=== PATIENT | female | born 1955 | race African-American/Black ===

== ENCOUNTER 2022-01-23 19:10 | Emergency (ER) | payer OTHER, SELFPAY ==
[2022-01-23] VITALS (8 sets, daily range): BP systolic 117–188; BP diastolic 51–122; PULSE 77–89; RESP 18; TEMP 36.6; O2SAT 94–99; BMI 31.4
--- NOTE | ~2022-01-23 | CT_ITS ---
EXAMINATION: CHEST. CT BRAIN WITHOUT CONTRAST. CLINICAL INFORMATION: Weakness. COMPARISON: None TECHNIQUE: 5 mm thin axial and reformatted 2 mm thin sagittal and coronal images of brain were obtained without contrast. DLP 711. Chest one view. FINDINGS: BRAIN: There is no acute intra-axial, extra-axial bleed, masses or midline shift shift. Both lateral ventricles are symmetrical in size and configuration without enlargement. There is no acute infarction evolution. There is no edema. There is dystrophic bibasilar calcification. Bone windows reveal no calvarial abnormality. There is no scalp abnormality seen. Bilateral paranasal sinuses and mastoid air cells are well-aerated. CHEST: The lungs are well-expanded and clear. The heart size and pulmonary vascularity is normal. No gross bony abnormality seen. CT/CT head/brain wo IV con IMPRESSION: Unremarkable chest exam. No acute intracranial process seen.
--- NOTE | 2022-01-23 19:20 | ECG_ITS ---
Test Reason : SYNCOPE Blood Pressure : / mmHG Vent. Rate : 077 BPM Atrial Rate : 077 BPM P-R Int : 210 ms QRS Dur : 084 ms QT Int : 330 ms P-R-T Axes : 042 -14 080 degrees QTc Int : 373 ms Sinus rhythm with 1st degree A-V block Minimal voltage criteria for LVH, may be normal variant ( R in aVL ) Nonspecific T wave abnormality Abnormal ECG No previous ECGs available Referred By: Fern Quinonez Electronically Signed By:KARMA BAH MD
[2022-01-23 20:26] LABS: MANUAL DIFF FLAG NO
[2022-01-23 20:31] LABS: Basophils Percent Auto 0.7 % (0-2); Eosinophils Percent Auto 0.7 % (0-4); Hemoglobin 13.2 g/dl (12.0-16.0); Imm Gran Abs Auto 0.01 X10*3/uL (0.00-0.03); Imm Gran Pct Auto 0.2 % (0.0-0.4); Lymphocytes Absolute Auto 1.4 X10*3/uL (1.2-4.9); Lymphocytes Percent Auto 26.7 % (20-40); Mean Corpuscular HGB Conc 31.4 g/dl (31.0-35.0); Mean Corpuscular Volume 79.5 fL (80.0-98.0); Mean Platelet Volume 9.8 fL (9.4-12.3); Monocytes Absolute Auto 0.4 X10*3/uL (0.1-1.2); Neutrophils Absolute Auto 3.4 x10*3/uL (2.0-8.3); Neutrophils Percent Auto 63.7 % (45-73); Platelet Count 223 X10*3/uL (160-400); Red Blood Count 5.28 X10*6/uL (4.20-5.50); Red Cell Distribution Width 14.2 % (11.0-16.0); White Blood Count 5.4 X10*3/uL (4.8-10.8)
--- NOTE | 2022-01-23 20:34 | ED_ITS ---
HPI - Dizziness General Chief Complaint: Dizziness Stated Complaint: dizzy Time Seen by Provider: 01/23/22 19:20 Source: patient Mode of arrival: ambulatory Limitations: no limitations History of Present Illness HPI Narrative: 66-year-old female presents to the emergency department with dizziness x1 day. Patient reports at 15:00 today at work she began experiencing a diffuse pounding headache and spinning sensation which she needed to grab on the wall for balance. Additionally patient states she began experiencing chills. Patient immediately took her blood pressure and reports it being 198/97. Patient reports her symptoms are percipitated by fast head movements and movement in general. Standing still makes it slightly better. Patient left work, walked to her car and experienced another dizzy spell, then she called 911. Currently patient is experiencing a headache with no dizziness. Patient denies chest pain, shortness of breath, changes in vision, nausea, vomiting, abdominal pain, weakness, neck pain, fevers, altered mental status, confusion. Related Data Previous Rx's Medication Instructions Recorded meclizine 25 mg tablet 25 mg PO DAILY PRN dizziness #20 01/23/22 tabs Allergies Allergy/AdvReac Type Severity Reaction Status Date / Time Unable to Assess Allergy Unverified 01/23/22 19:20 Review of Systems Review of Systems: Constitutional : No Weight loss, No Fever, No Chills, No Fatigue, No Malaise ENT/Mouth : No sore throat, No Rhinorrhea Eyes: No Eye Pain, No Swelling, No Redness Cardiovascular : No Chest Pain, No SOB, No Dyspnea on Exertion, No Orthopnea, No Edema, No Palpitations Respiratory : No Cough, No Sputum, No Wheezing Gastrointestinal : No Nausea, No Vomiting, No Diarrhea, No Constipation, No abdominal Pain, No Hematochezia, No Melena Genitourinary : No Dysuria, No Urinary Frequency, No Hematuria, Musculoskeletal : No joint pain, No Myalgias, No Joint Swelling Skin : No Skin Lesions, No rash Neuro : No Weakness, No Numbness, + Dizziness, + Headache Psych : No Anxiety/Panic, No Depression All other systems reviewed and are negative Yes all other systems are reviewed and are negative [facility] Past Medical History Attestation statement: The following information was validated with the patient. Source: old records reviewed and nursing notes reviewed Social History Social History Advance Directives: No Advance Directives Information Provided: No Physical Exam Vital Signs: Vital Signs: Last Vital Signs Temp 97.9 F 01/23/22 21:27 Pulse 87 01/23/22 23:20 Resp 18 01/23/22 21:27 BP 131/76 01/23/22 23:20 Pulse Ox 94 01/23/22 21:27 O2 Del Method 01/23/22 21:27 BMI result Body Mass Index 31.4 vss Appearance: Alert.? Oriented X3.? No acute distress.? Head: Normocephalic, atraumatic, no step-offs or deformities Eyes: Pupils equal, round and reactive to light.? Extraocular movements intact , pain-free and no nystagmus. Neck: Normal inspection.? Neck supple.?No meningeal signs negative Kernig and Brudzinski. CVS: Normal heart rate and rhythm.? Pulses normal.? Respiratory: No respiratory distress.? Breath sounds normal.? Abdomen: Soft and nontender.? Skin: Skin warm and dry.? Normal skin color.? Normal skin turgor.? Extremities: No lower extremity edema.? No calf ttp. 5/5 strength to bilateral upper and lower extremities. Normal hand elementary substitute teacher bilaterally. Back: No midline tenderness, no C-spine tenderness, full range of motion, no CVA tenderness bilaterally Neuro: Oriented X 3.? No motor deficit.? No sensory deficit. CN 2-12 intact . Normal vvfvrk-nl-rpnk, bkej-bk-zugl, steady tandem gait with normal coordination. Normal rapid alternating movements. Negative Romberg and pronator drift. Course Reevaluation(s) Reevaluation #1: CBC appears to be within normal limits. Chemistry with no acute findings. Troponin negative, EKG nonischemic, does show a sinus rhythm with first-degree AV block however. UA without infection. COVID negative. Chest x-ray unremarkable. No acute intracranial process seen. CT of the head with no acute intracranial process. Upon re-evaluation patient tells me that her headache which was 10/10 is now a 5/10 in improving significantly. Reports no dizziness at this time. No vision changes, weakness. No other symptoms other than headache. At this time will give Reglan and Benadryl I suspect patient will be discharged home after improvement. Time: 23:36 Reevaluation #2: Patient feeling much better. Patient will be DC home with PCP and neurology follow up. Comfortable w/ discharge. At time of DC patient tolerating PO and ambulating w/ steady gait. No focal neuro deficits. Time: 00:30 MDM - Dizziness MDM Narrative Medical decision making narrative: 1917 A 66-year-old female presents with episodes of dizziness described as vertigo, headache. Not on blood thinners, no head trauma head never had this before. GCS- 15, NIHSS-0 Physical examination benign. Neuro exam nonfocal. Cerebellar function intact. Regular rate and rhythm, lungs clear, abdomen soft nontender nondistended. No meningeal signs. No focal neuro deficits no need for CTA of head and neck. Will obtain CT of head however to rule out ICH/SAH. Unlikley posterior stroke. Will rule out orthostatic hypotension, dysrhythmias, electrolyte abnormality. Likely that this is vertigo with headache or complex migraine Plan at this time is to obtain basic labs, EKG, orthostatic vital signs, CT of the head and brain, chest x-ray. Will also obtain urine. Will give fluids, meclizine. Will give morphine for headache. Medical Records Attestation: I reviewed the patient's medical records. Lab Data Attestation: I reviewed the patient's lab results. Result diagrams: 01/23/22 20:12 01/23/22 20:12 Labs: Lab Results 01/23/22 01/23/22 01/23/22 Range/Units 20:12 20:12 20:12 WBC 5.4 (4.8-10.8) X10*3/uL RBC 5.28 (4.20-5.50) X10*6/uL Hgb 13.2 (12.0-16.0) g/dl Hct 42.0 (37.0-47.0) % MCV 79.5 L (80.0-98.0) fL MCH 25.0 L (27.0-33.0) pg MCHC 31.4 (31.0-35.0) g/dl RDW 14.2 (11.0-16.0) % Plt Count 223 (160-400) X10*3/uL MPV 9.8 (9.4-12.3) fL Immature Gran % (Auto) 0.2 (0.0-0.4) % Neut % (Auto) 63.7 (45-73) % Lymph % (Auto) 26.7 (20-40) % [place] % (Auto) 8.0 (2-11) % Eos % (Auto) 0.7 (0-4) % Baso % (Auto) 0.7 (0-2) % Lymph # (Auto) 1.4 (1.2-4.9) X10*3/uL [place] # (Auto) 0.4 (0.1-1.2) X10*3/uL Eos # (Auto) 0.0 (0.0-0.4) X10*3/uL Baso # (Auto) 0.0 (0.0-0.2) X10*3/uL Abs Immat Gran (auto) 0.01 (0.00-0.03) X10*3/uL Absolute Neuts (auto) 3.4 (2.0-8.3) x10*3/uL Absolute Nucleated RBC 0.000 (0.0-0.012) X10*3/uL Nucleated RBC % (auto) 0.0 (0.0-0.2) /100WBC Sodium 139 (135-145) mmol/L Potassium 4.0 (3.3-5.1) mmol/L Chloride 101 (96-108) mmol/L Carbon Dioxide 27 (22-29) mmol/L Anion Gap 15 (12-20) BUN 16 (9-16) mg/dL Creatinine 1.22 (0.5-1.4) mg/dL Estim Creat Clear Calc 54.0 Estimated GFR 44 Random Glucose 95 (60-115) mg/dL Calcium 9.2 (8.4-10.2) mg/dL Magnesium 2.0 (1.6-2.6) mg/dL Total Bilirubin 0.5 (0.0-1.0) mg/dL AST 25 (5-31) U/L ALT 18 (0-31) U/L Alkaline Phosphatase 122 H (39-117) U/L Troponin I High Sens 4.3 (<3.5-17.0) ng/L Total Protein 8.1 H (6.5-8.0) g/dL Albumin 4.3 (3.5-5.0) g/dL Urine Color Urine Appearance Urine pH (5.0-9.0) Ur Specific [place] (1.005-1.025) Urine Protein (Neg-Trace) mg/dL Urine Glucose (UA) (Negative) mg/dL Urine Ketones (Negative) mg/dL Urine Blood (Negative) Urine Nitrite (Negative) Ur Leukocyte Esterase (Negative) Urine RBC (0-2) /HPF Urine WBC (0-5) /HPF Ur Squamous Epith Cells (0-2) /HPF Urine Bacteria (None Seen) Hyaline Casts (0-2) /LPF COVID-19 (JOÃO) (Negative) COVID-19 Clin Com 01/23/22 01/23/22 Range/Units 20:12 20:31 WBC (4.8-10.8) X10*3/uL RBC (4.20-5.50) X10*6/uL Hgb (12.0-16.0) g/dl Hct (37.0-47.0) % MCV (80.0-98.0) fL MCH (27.0-33.0) pg MCHC (31.0-35.0) g/dl RDW (11.0-16.0) % Plt Count (160-400) X10*3/uL MPV (9.4-12.3) fL Immature Gran % (Auto) (0.0-0.4) % Neut % (Auto) (45-73) % Lymph % (Auto) (20-40) % [place] % (Auto) (2-11) % Eos % (Auto) (0-4) % Baso % (Auto) (0-2) % Lymph # (Auto) (1.2-4.9) X10*3/uL [place] # (Auto) (0.1-1.2) X10*3/uL Eos # (Auto) (0.0-0.4) X10*3/uL Baso # (Auto) (0.0-0.2) X10*3/uL Abs Immat Gran (auto) (0.00-0.03) X10*3/uL Absolute Neuts (auto) (2.0-8.3) x10*3/uL Absolute Nucleated RBC (0.0-0.012) X10*3/uL Nucleated RBC % (auto) (0.0-0.2) /100WBC Sodium (135-145) mmol/L Potassium (3.3-5.1) mmol/L Chloride (96-108) mmol/L Carbon Dioxide (22-29) mmol/L Anion Gap (12-20) BUN (9-16) mg/dL Creatinine (0.5-1.4) mg/dL Estim Creat Clear Calc Estimated GFR Random Glucose (60-115) mg/dL Calcium (8.4-10.2) mg/dL Magnesium (1.6-2.6) mg/dL Total Bilirubin (0.0-1.0) mg/dL AST (5-31) U/L ALT (0-31) U/L Alkaline Phosphatase (39-117) U/L Troponin I High Sens (<3.5-17.0) ng/L Total Protein (6.5-8.0) g/dL Albumin (3.5-5.0) g/dL Urine Color Yellow Urine Appearance Clear Urine pH 7.0 (5.0-9.0) Ur Specific [place] 1.010 (1.005-1.025) Urine Protein Negative (Neg-Trace) mg/dL Urine Glucose (UA) Negative (Negative) mg/dL Urine Ketones Negative (Negative) mg/dL Urine Blood Moderate (2+) H (Negative) Urine Nitrite Negative (Negative) Ur Leukocyte Esterase Large (3+) H (Negative) Urine RBC 3-5 H (0-2) /HPF Urine WBC 6-10 H (0-5) /HPF Ur Squamous Epith Cells 0-2 (0-2) /HPF Urine Bacteria None Seen (None Seen) Hyaline Casts 0-2 (0-2) /LPF COVID-19 (JOÃO) Negative (Negative) COVID-19 Clin Com See Note Critical Care Time Critical Care Time Critical Care Time: No Discharge Plan Discharge Clinical Impression: Headache, Vertigo Patient Disposition: Home, Self-Care Additional Instructions: Take your medications as prescribed. If you were prescribed antibiotics today, it is important that you take your medication to their entirety, do not skip any doses, do not finish them early. Follow-up with your primary care provider this week. Follow up with neurology if symptoms persist. Return to the emergency department with new or worsening symptoms. Such as fe vers, chills, chest pain, shortness of breath, nausea, vomiting, dizziness, headache, vision changes, lethargy In case of emergency call 911 Prescriptions: New meclizine 25 mg tablet 25 mg PO DAILY PRN (Reason: dizziness) Qty: 20 0RF Referrals: [facility] Neuro/Sleep [Provider Group] - 2 weeks Physician,Nonstaff [Primary Care Provider] - 2 days Stand Alone Forms: Work/School Release
[2022-01-23 20:41] LABS: COVID-19 Test Negative (Negative); IDNOW Serial# 55D5AD1C
[2022-01-23 20:43] LABS: Appearance Urine Clear; Color Urine Yellow; Glucose Urine UA Negative (Negative); Leukocyte Esterase Urine Large (3+) (Negative); Nitrite Urine Negative (Negative); UMIC TRIGGER UACC YES; Urine Blood Moderate (2+) (Negative); Urine Ketones Negative (Negative); Urine Protein Negative (Neg-Trace)
[2022-01-23] MEDS: Morphine Sulfate 4 MG/ML CARTRIDGE IVPUSH (20:44)
[2022-01-23] MEDS: Meclizine HCl 25 MG TABLET PO (20:45)
[2022-01-23] MEDS: 0.9 % Sodium Chloride 1,000 ML 999 ML IV (20:45)
[2022-01-23 20:54] LABS: Alanine Aminotransferase 18 U/L (0-31); Albumin Level 4.3 g/dL (3.5-5.0); Alkaline Phosphatase 122 U/L (39-117); Anion Gap 15 (12-20); Aspartate Amino Transferase 25 U/L (5-31); Bilirubin Total 0.5 mg/dL (0.0-1.0); Blood Urea Nitrogen 16 mg/dL (9-16); Calcium 9.2 mg/dL (8.4-10.2); Carbon Dioxide 27 mmol/L (22-29); Chloride 101 mmol/L (96-108); Estimated Glomerular Filt Rate 44; Glucose Random 95 mg/dL (60-115); Sodium 139 mmol/L (135-145); Total Protein 8.1 g/dL (6.5-8.0)
[2022-01-23 20:55] LABS: Bacteria Urine None Seen (None Seen); Hyaline Casts Urine 0-2 /LPF (0-2); Squamous Epithelial Cell Urine 0-2 /HPF (0-2); UACC Culture Trigger YES
[2022-01-23 20:59] LABS: Troponin-I High Sensitivity 4.3 ng/L (<3.5-17.0)
[2022-01-24] MEDS: Metoclopramide HCl 10 MG TABLET PO (00:35)
[2022-01-24] MEDS: Acetaminophen 325 MG TABLET 975 MG PO (00:35)
[2022-01-24] MEDS: diphenhydrAMINE HCL 25 MG CAPSULE PO (01:10)
== END 2022-01-24 01:57 | disposition home or self-care (01) ==
PROVIDERS: Physician Assistant; Emergency Provider Emergency Medicine
DX: R42 Dizziness and giddiness (principal); R51.9 Headache, unspecified; I44.0 Atrioventricular block, first degree; Z20.822 Contact with and (suspected) exposure to COVID-19
CPT/HCPCS: 70450; 71045; 80053; 81001; 83735; 84484; 85025; 87086; 87147; 87635; 93005; 96361; 96374; 99284; 99285; J2270

== ENCOUNTER 2024-09-03 17:54 | Emergency (ER) | payer OTHER, SELFPAY ==
[2024-09-03 18:00] VITALS: BP 152/90; PULSE 62; O2SAT 96
[2024-09-03 18:08] VITALS: BP 164/83; PULSE 60; RESP 16; TEMP 36.7; O2SAT 94; BMI 30.7
[2024-09-03 18:09] VITALS: BP 164/83; PULSE 59; RESP 16; TEMP 36.7; O2SAT 94
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
[2024-09-03] MEDS: Ibuprofen 600 MG TABLET PO (18:54)
[2024-09-03] MEDS: Acetaminophen 325 MG TABLET 975 MG PO (18:54)
[2024-09-03] MEDS: Ondansetron ODT 8 MG TAB.RAPDIS TRANSLINGU (18:57)
--- NOTE | 2024-09-03 19:06 | PC.NURSE ---
pt medicated per order
[2024-09-03 19:59] VITALS: BP 164/83; PULSE 59; RESP 16; TEMP 36.7; O2SAT 94
== END 2024-09-03 20:00 | disposition home or self-care (01) ==
PROVIDERS: Emergency Provider Internal Medicine; PCP Internal Medicine
DX: S00.93XA Contusion of unspecified part of head, initial encounter (principal); Y04.2XXA Assault by strike against or bumped into by another person, initial encounter; R51.9 Headache, unspecified; Y93.F9 Activity, other caregiving; Y92.129 Unspecified place in nursing home as the place of occurrence of the external cause; Y99.0 Civilian activity done for income or pay
CPT/HCPCS: 99283; 99284